=== PATIENT | female | born 1985 | race Two or more races ===

== ENCOUNTER 2024-09-14 13:27 | Outpatient (CLI) | payer OTHER | END 2024-09-14 13:29 | disposition home or self-care (01) | LOC: PRENATAL 13:27 | PROVIDERS: ATTEND Obstetrics & Gynecology Maternal & Fetal Medicine | DX: O44.00 Complete placenta previa NOS or without hemorrhage, unspecified trimester (principal); O09.519 Supervision of elderly primigravida, unspecified trimester; Z14.8 Genetic carrier of other disease; Z3A.20 20 weeks gestation of pregnancy ==

== ENCOUNTER 2024-09-14 15:34 | Outpatient (CLI) | payer OTHER | END 2024-09-14 15:48 | disposition home or self-care (01) | LOC: LAB 15:34 | PROVIDERS: ATTEND Obstetrics & Gynecology Maternal & Fetal Medicine | DX: Z00.00 Encounter for general adult medical examination without abnormal findings (principal); O28.3 Abnormal ultrasonic finding on antenatal screening of mother; O28.5 Abnormal chromosomal and genetic finding on antenatal screening of mother ==

== ENCOUNTER → 2024-11-16 11:44 | Outpatient (CLI) | payer OTHER | END | disposition home or self-care (01) | LOC: PRENATAL 11:44 | PROVIDERS: ATTEND Obstetrics & Gynecology Maternal & Fetal Medicine | DX: O26.849 Uterine size-date discrepancy, unspecified trimester (principal); O36.8199 Decreased fetal movements, unspecified trimester, other fetus; O09.519 Supervision of elderly primigravida, unspecified trimester; O28.5 Abnormal chromosomal and genetic finding on antenatal screening of mother; Z14.8 Genetic carrier of other disease; O99.019 Anemia complicating pregnancy, unspecified trimester; Z3A.28 28 weeks gestation of pregnancy ==